=== PATIENT | male | born 1970 | race Caucasian/White ===

== ENCOUNTER 2022-01-23 10:41 | Emergency (ER) | payer OTHER, SELFPAY ==
[2022-01-23 10:45] VITALS: BP 162/94; PULSE 74; RESP 14; TEMP 35.9; O2SAT 97; BMI 25.0
--- NOTE | 2022-01-23 10:48 | DI.RAD.S_ITS ---
PROCEDURE: XR FOOT RT MIN 3V INDICATIONS: foot pain,swelling and redness TECHNIQUE: 3 views of the foot were acquired. COMPARISON: None. FINDINGS: Bones: No fractures or dislocations. No suspicious bony lesions. Soft tissues: No tibiotalar joint effusion. Achilles tendon appears normal. IMPRESSION: No acute osseous finding. Dictated by: Roscoe Bragg M.D. on 01/23/2022 at 10:37 Approved by: Roscoe Bragg M.D. on 01/23/2022 at 10:38
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
[2022-01-23 12:14] VITALS: BP 147/89; PULSE 71; RESP 16; O2SAT 100
== END 2022-01-23 12:15 | disposition home or self-care (01) ==
PROVIDERS: Emergency Provider Emergency Medicine
DX: L03.115 Cellulitis of right lower limb (principal)
CPT/HCPCS: 73630; 99283

== ENCOUNTER → 2022-01-28 10:36 | Outpatient (CLI) | payer OTHER, SELFPAY ==
[2022-01-28 13:06] LABS: Alanine Aminotransferase 14 IU/L (<50); Albumin 4.4 g/dL (3.5-5.0); Albumin Globulin Ratio 1.4 (1.0-2.8); Alkaline Phosphatase 55 U/L (38-126); Aspartate Aminotransferase 21 IU/L (17-59); BUN Creatinine Ratio 16.3 (6-22); Bilirubin Total 0.6 mg/dL (0.2-1.3); Blood Urea Nitrogen 16 mg/dL (9-20); Calcium 9.5 mg/dL (8.4-10.2); Carbon Dioxide 31 mmol/L (22-32); Chloride 101 mmol/L (98-107); Estimated Glomerular Filt Rate > 60 mL/min (>60); Globulin 3.2 g/dL (1.7-4.1); Glucose 96 mg/dL (70-100); HEMOLYSIS < 15 (0-50); Potassium 4.7 mmol/L (3.4-5.1); Sodium 141 mmol/L (137-145); Total Protein 7.6 g/dL (6.3-8.2); Uric Acid 5.7 mg/dL (3.5-8.5)
== END ==
PROVIDERS: PCP Family Medicine; Referring Provider Family Medicine; Visit Provider Family Medicine
DX: M10.9 Gout, unspecified (principal)
CPT/HCPCS: 36415; 80053; 84550

== ENCOUNTER → 2022-06-16 11:12 | Outpatient (CLI) | payer OTHER, SELFPAY ==
[2022-06-16 11:54] LABS: Cholesterol 189 mg/dL (140-199); HDL Cholesterol 69 mg/dL (40-60); LDL Cholesterol Calculated 110 mg/dL (<100); Triglycerides 52 mg/dL (35-150); Uric Acid 5.3 mg/dL (3.5-8.5)
[2022-06-16 12:09] LABS: Prostate Specific Antigen 1.08 ng/mL (0.10-4.00)
== END ==
PROVIDERS: PCP Family Medicine; Referring Provider Family Medicine; Visit Provider Family Medicine
DX: Z00.00 Encounter for general adult medical examination without abnormal findings (principal); M10.071 Idiopathic gout, right ankle and foot
CPT/HCPCS: 36415; 80061; 84153; 84550

== ENCOUNTER 2022-09-02 10:35 | Day surgery (SDC) | payer OTHER, SELFPAY ==
--- NOTE | 2022-09-02 | PATH_ITS ---
[facility] Accession Number: [id number] No. of containers..03 Tissue . 01 Material submitted: . PART A: rectum - RECTAL POLYP PART B: rectum - RECTAL POLYP PART C: colon - TRANSVERSE COLON POLYP . 01 Diagnosis: A. Rectal Polyp, Biopsy: Hyperplastic polyp. . B. Rectal Polyps, Biopsy: Polypoid colonic mucosa with no neoplasm identified, consistent with mucosal redundancy. . C. Transverse Colon Polyp, Biopsy: Tubular adenoma. MRV 09/06/2022 1225 Local . 01 Electronically signed: . Rica Agrawal MD, Pathologist NPI- [id number] . 01 Gross description: . Part A: RECTAL POLYP: Received in formalin is 1 fragment(s) of navarro, soft tissue measuring 0.3 x 0.2 x 0.2 cm submitted entirely in 1 cassette(s) Part B: RECTAL POLYP: Received in formalin is 1 fragment(s) of navarro, soft tissue measuring 0.7 x 0.2 x 0.2 cm submitted entirely in 1 cassette(s) Part C: TRANSVERSE COLON POLYP: Received in formalin is 1 fragment(s) of navarro, soft tissue measuring 0.5 x 0.2 x 0.1 cm submitted entirely in 1 cassette(s) /CPE 09/03/2022 0658 Local . 01 Pathologist provided ICD-10: D12.8, D12.3 . 01 CPT . 068917, 651177, 536241 Specimen Comment: A courtesy copy of this report has been sent to [facility] Pathology Performed at: [facility] [address], [place], [place] [id number] MD Luis Angel Coombs MD Phone: [phone]
[2022-09-02 10:58] VITALS: BP 123/81; PULSE 63; RESP 21; TEMP 36.4; O2SAT 98; BMI 25.0
[2022-09-02] MEDS: LACTATED RINGERS 1,000 ML 84 ML IV (11:19)
--- NOTE | 2022-09-02 12:54 | PM.HP.1 ---
History of Present Illness History of Present Illness Date Patient Seen: 09/02/22 Time Patient Seen: 12:54 Chief complaint: [facility] Narrative: Mr. Viramontes presents today for screening colonoscopy. He has no family history of colon cancer and no concerning symptoms. He is never had abdominal surgery and he feels the prep went well and that his bowel movements are relatively clear. He has no other questions [facility] Medical History Ankle pain (~1986) Borderline hyperlipidemia Chicken pox (~1979) Foot pain (~2015) Fractures (~1986) Gout Preventative health care Rosacea Tinea (~2006) Wears glasses Surgical History Anesthesia History of ankle surgery (~1986) Social History household members: significant other Smoking Status: Unknown if ever smoked Meds Home Medications and Allergies Home Medications Medication Instructions Recorded Confirmed Type indomethacin 50 mg capsule 50 mg PO TID PRN gout #30 caps 05/26/22 06/24/22 Rx metronidazole 1 % topical gel 1 applic topical BEDTIME Rosacea 06/24/22 06/24/22 Rx (Metrogel) #60 grams allopurinol 100 mg tablet 100 mg PO DAILY #90 tabs 09/02/22 Rx colchicine 0.6 mg tablet 0.6 mg PO .COMPLEX #20 tabs 09/02/22 Rx Allergies Allergy/AdvReac Type Severity Reaction Status Date / Time No Known Drug Allergies Allergy Verified 09/02/22 11:21 Exam Vital Signs (past 8 hours): - 09/02/22 10:58 Temperature 97.5 F L Pulse Rate 63 Respiratory Rate 21 Blood Pressure 123/81 Pulse Oximetry 98 Oxygen Delivery Method Room Air Oxygen Delivery Method Room Air Const General: cooperative, healthy appearing and comfortable Nutritional Appearance: average body habitus Orientation: alert, awake and oriented x3 HENMT Head: normal to inspection Eyes General: appearance normal, both eyes and all related structures Resp Effort & Inspection: normal respiratory effort and able to speak in complete sentences GI Palpation: soft and No tender Assessment & Plan Assessment and plan (1) Colon cancer screening: Status: Acute Assessment & Plan narrative: Presents today for screening colonoscopy I discussed the risks benefits and alternatives including but not limited to perforation of the colon and an incomplete exam he fully understands these risks and would like to proceed.
[2022-09-02 13:50] VITALS: BP 107/73; PULSE 59; RESP 14; TEMP 36.9; O2SAT 99
[2022-09-02 13:55] VITALS: BP 106/72; PULSE 54; RESP 15; TEMP 36.6; O2SAT 98
[2022-09-02 14:02] VITALS: BP 112/77; PULSE 64; RESP 21; O2SAT 96
[2022-09-02 14:06] VITALS: BP 115/80; PULSE 53; RESP 11; TEMP 36.6; O2SAT 100
--- NOTE | 2022-09-24 19:26 | PM.OP.COLON ---
Operative Date/Time/Diagnoses Date of procedure: 09/02/22 Pre-op diagnosis: Colon cancer screening Post-op diagnosis: same Procedure & Clinicians Study performed: Colonoscopy and biopsy Same procedure as scheduled: Yes Indications: Colon cancer screening Surgeon: Leigha Reed Procedure Notes Procedure in detail: Patient was taken to the endoscopy suite and placed in a left lateral decubitus position. With the help of anesthesiology provider, conscious sedation was induced and maintained throughout the case. A time-out was performed. A digital rectal exam was performed and there were no masses or strictures. Colonoscope was introduced into the anal canal and advanced through to the cecum. A photograph was obtained of the appendiceal orifice. The prep was good [place] bowel prep score of 2. The colonoscope was then withdrawn for a duration of greater than 10 minutes. During the withdrawal a odd looking polyp was seen in the transverse colon. It had the appearance of a finger protruding and a photograph was taken. This polyp was snared and removed. It was sent for pathology. The remainder of the withdrawal did not reveal any further polyps until we reached the rectum. There was 1 larger rectal polyp but still less than 1 cm and a smaller one that were both removed and sent for pathology. Scope was retroflexed and a photograph obtained of the hemorrhoidal piles with which were within normal limits. Patient tolerated the procedure well and went in good condition to the postoperative care unit. Findings: polyp(s) Specimen(s): other (1. Transverse colon polyp 2. Rectal polyp 3. Small rectal polyp) Complications: none Post-procedure Plan for aftercare: Follow up in 7-10 years
== END 2022-09-02 14:23 | disposition home or self-care (01) ==
PROVIDERS: PCP Family Medicine; Referring Provider Surgery; Visit Provider Surgery
PROC: 0DJD8ZZ Inspection of Lower Intestinal Tract, Via Natural or Artificial Opening Endoscopic (ICD-10-PCS; CPT 45378; principal; 2022-09-02 11:45)
DX: Z12.11 Encounter for screening for malignant neoplasm of colon (principal); K62.1 Rectal polyp; D12.3 Benign neoplasm of transverse colon
CPT/HCPCS: 45385; J2704